=== PATIENT | male | born 1980 | race Caucasian/White ===

== ENCOUNTER 2019-05-30 12:35 | Emergency (ER) | payer BC ==
[~2019-05-30] VITALS: Ht 177.8 cm; Wt 90.7 kg
[2019-05-30] MEDS ORDERED: LANTUS SUBQ (12:48)
[2019-05-30] MEDS ORDERED: NORCO 5-325 TA1 EAC1 PO (14:19)
[2019-05-30] MEDS ORDERED: NAPROSYN500 MG PO (14:19)
[2019-05-30] MEDS ORDERED: ZANAFLEX4 MG PO (14:19)
[2019-05-30 14:35] VITALS: BP 140/88
== END 2019-05-30 14:36 | disposition home or self-care (01) ==
LOC: M.ERS 12:35
DX: S16.1XXA Strain of muscle, fascia and tendon at neck level, initial encounter (principal); S20.211A Contusion of right front wall of thorax, initial encounter; S09.8XXA Other specified injuries of head, initial encounter; E11.9 Type 2 diabetes mellitus without complications; I10 Essential (primary) hypertension; V89.2XXA Person injured in unspecified motor-vehicle accident, traffic, initial encounter; Y93.89 Activity, other specified; Y92.89 Other specified places as the place of occurrence of the external cause; Y99.8 Other external cause status